=== PATIENT | male | born 1955 | race Caucasian/White ===

== ENCOUNTER → 2016-11-12 | Outpatient (CLI) | payer OTHER ==
--- NOTE | 2016-11-12 15:46 | DI ---
XR FOOT COMPLETE MIN 3VW,11/12/2016 2:50 PM: Clinical History: Left foot pain Previous Exam: None at this facility. Findings: 3 views of the left foot are obtained, and demonstrate anatomic alignment without fractures. There ar e mild degenerative changes involving the left first metatarsophalangeal joint. Impression: Normal left foot.
== END ==
LOC: LAB 14:22
PROVIDERS: ATTEND Family Medicine
DX: M79.672 Pain in left foot (principal); M19.072 Primary osteoarthritis, left ankle and foot
CPT/HCPCS: 73630